=== PATIENT | female | born 1950 | race Caucasian/White ===

== ENCOUNTER 2017-05-11 14:15 | Day surgery (SDC) | payer BC, MEDICARE ==
[~2017-05-11] VITALS: Ht 160 cm; Wt 90.0 kg
[~2017-05-11 14:15] MED LIST: CONTRAVE ER 8-1 EACH; Dyazide 37.5-21 EACH; ESOM20; ESTMED; FURO20; GABA300; K-Dur20 MEQ; LEVO-T175 MCG; LOSARTAN POTAS100 MG; MELO7.5; METO100ER; MONT10T; PENNSAID2 GM; PREG100; TRAM50; ZYRTEC10 M2
[2018-02-04] MEDS ORDERED: Synthroid175 MCG PO (13:24)
[2018-02-04] MEDS ORDERED: METO100ER PO (13:25)
[2018-02-04] MEDS ORDERED: Dyazide 37.5-21 EACH PO ×2 (13:25→13:30)
[2018-02-04] MEDS ORDERED: LOSARTAN POTAS100 MG PO (13:25)
[2018-02-04] MEDS ORDERED: ESTRADIOL1 MG PO (13:26)
[2018-02-04] MEDS ORDERED: MONT10T PO (13:26)
[2018-02-04] MEDS ORDERED: Multivitamin1 EAC1 PO (13:27)
[2018-02-04] MEDS ORDERED: VITAMIN D32000 UNIT PO (13:27)
[2018-02-04] MEDS ORDERED: GABA300 PO (13:27)
[2018-02-04] MEDS ORDERED: PENNSAID2 GM TOP (13:28)
[2018-02-04] MEDS ORDERED: Mobic15 MG PO (13:29)
[2018-02-04] MEDS ORDERED: TRAM50 PO (13:29)
[2018-02-04] MEDS ORDERED: HYDR1TAB94 PO (13:29)
== END 2017-05-11 17:11 | disposition home or self-care (01) ==
LOC: ORSCSDS 14:15
PROVIDERS: Podiatrist
PROC: 0L8V0ZZ Division of Right Foot Tendon, Open Approach (ICD-10-PCS; principal; 2017-05-11 15:30)
PROC: 0QSN0ZZ Reposition Right Metatarsal, Open Approach (ICD-10-PCS; principal; 2017-05-11 15:30)
DX: M20.11 Hallux valgus (acquired), right foot (principal); M20.41 Other hammer toe(s) (acquired), right foot; E11.40 Type 2 diabetes mellitus with diabetic neuropathy, unspecified; E03.9 Hypothyroidism, unspecified; J44.9 Chronic obstructive pulmonary disease, unspecified; I10 Essential (primary) hypertension; E66.01 Morbid (severe) obesity due to excess calories; Z68.35 Body mass index [BMI] 35.0-35.9, adult; Z79.899 Other long term (current) drug therapy
CPT/HCPCS: 82947; C1713; J0690; J1100; J1885; J2250; J2370; J2405; J3010; J7120

== ENCOUNTER 2018-02-12 12:17 | Day surgery (SDC) | payer OTHER ==
[~2018-02-12] VITALS: Ht 160 cm; Wt 83.2 kg
[~2018-02-12 12:17] MED LIST changes: +Dyazide 37.5-21 EACH PO; +ESTRADIOL1 MG PO; +GABA300 PO; +HYDR1TAB94 PO; +LOSARTAN POTAS100 MG PO; +METO100ER PO; +MONT10T PO; +Mobic15 MG PO; +Multivitamin1 EAC1 PO; +PENNSAID2 GM TOP; +Synthroid175 MCG PO; +TRAM50 PO; +VITAMIN D32000 UNIT PO
[2018-02-12] MEDS ORDERED: MELO7.5 (12:57)
== END 2018-02-12 14:24 | disposition home or self-care (01) ==
LOC: ORSCSDS 12:17
PROVIDERS: Surgery
PROC: 0DJD8ZZ Inspection of Lower Intestinal Tract, Via Natural or Artificial Opening Endoscopic (ICD-10-PCS; principal; 2018-02-12 13:30)
DX: Z12.11 Encounter for screening for malignant neoplasm of colon (principal); Z86.010 Personal history of colon polyps; I10 Essential (primary) hypertension; E03.9 Hypothyroidism, unspecified; E11.9 Type 2 diabetes mellitus without complications; Z79.899 Other long term (current) drug therapy
CPT/HCPCS: J7120

== ENCOUNTER → 2021-07-12 | Outpatient (CLI) | payer OTHER ==
[2021-07-13 10:52] LABS: Candida species (DNA Probe) Negative (NEGATIVE); G. vaginalis (DNA Probe) Negative (NEGATIVE); T. vaginalis (DNA Probe) Negative (NEGATIVE)
== END | disposition home or self-care (01) ==
LOC: LAB 15:30 → LAB SHORT 15:30
PROVIDERS: Nurse Practitioner Family
DX: N89.8 Other specified noninflammatory disorders of vagina (principal)
CPT/HCPCS: 87480; 87510; 87660

== ENCOUNTER → 2022-08-07 | Outpatient (CLI) | payer OTHER ==
[~2022-08-07] MED LIST changes: +MELO7.5 PO; +Voltaren100 GM TOP
== END | disposition home or self-care (01) ==
LOC: LAB SHORT 10:43 → LAB 10:43
DX: E03.9 Hypothyroidism, unspecified (principal)
CPT/HCPCS: 84443

== ENCOUNTER → 2023-04-25 | Outpatient (CLI) | payer OTHER | END | disposition home or self-care (01) | LOC: LAB SHORT 14:15 | DX: E66.9 Obesity, unspecified (principal); R73.03 Prediabetes | CPT/HCPCS: 83036 ==

== ENCOUNTER → 2024-04-08 | Outpatient (CLI) | payer OTHER ==
[2024-04-08 15:22] LABS: Albumin, Blood 3.6 g/dL (3.4-5.0); Anion Gap 10 mmol/L (3-11); Blood Urea Nitrogen 20 mg/dL (8-24); Bun/Creatinine Ratio 25.1 (12.0-20.0); CO2, Blood 28 mmol/L (21-32); Calcium, Blood 9.8 mg/dL (8.5-10.1); Chloride, Blood 107 mmol/L (98-108); Glomerular Filtration Rate 79 (60-); Glucose, Blood 112 mg/dL (70-99); Phosphorus, Blood 3.5 mg/dL (2.5-4.9); Potassium, Blood 3.8 mmol/L (3.5-5.5); Sodium, Blood 141 mmol/L (136-145)
== END ==
LOC: LAB SHORT 13:19 → LAB 13:19
PROVIDERS: Internal Medicine
DX: E03.9 Hypothyroidism, unspecified (principal); I10 Essential (primary) hypertension
CPT/HCPCS: 80069; 84439; 84443